=== PATIENT | male | born 1980 | race Caucasian/White ===

== ENCOUNTER → 2024-09-05 | Outpatient (CLI) | payer OTHER, SELFPAY ==
[2024-09-05 13:40] LABS: Coccid Serology, CF (UCD)* See Sep Rpt
[2024-09-05 14:34] LABS: Alanine Aminotransferase 30 U/L (10-49); Albumin, Serum 5.4 gm/dL (3.5-5.0); Alkaline Phosphatase 74 U/L (46-116); Aspartate Amino Transferase 25 U/L (0-34); Bilirubin,Direct 0.2 mg/dL (0.0-0.3); Bilirubin,Total 0.7 mg/dL (0.3-1.2); Total Protein 7.7 gm/dL (5.7-8.2)
== END | disposition home or self-care (01) ==
LOC: COPL 13:27
PROVIDERS: PCP Family Medicine; Referring Provider Family Medicine; Visit Provider Family Medicine
DX: B38.3 Cutaneous coccidioidomycosis (principal)
CPT/HCPCS: 36415; 80076; 86171; 86334

== ENCOUNTER 2025-04-11 11:50 | Day surgery (SDC) | payer OTHER, SELFPAY ==
--- NOTE | 2025-04-10 11:33 | EKG_ITS ---
[facility] Test Date: 2025-04-10 Pat Name: ALDO CAMACHO Department: Room: - Gender: Male Cyber Security Consultant: JEN : 1980 Requested By: Tosha Marrufo Order Number: [id number] Reading MD: Tosha Marrufo Measurements Intervals [place] Rate: 65 P: 81 CT: 168 QRS: 86 QRSD: 93 T: 70 QT: 380 QTc: 396 Interpretive Statements SINUS RHYTHM EARLY REPOLARIZATION [ST ELEVATION WITH NORMALLY INFLECTED T WAVE] MODERATE ST DEPRESSION [0.05+ mV ST DEPRESSION] No previous ECG available for comparison /[id number]
[2025-04-10 11:54] LABS: Prothrombin Time 11.2 Seconds (9.0-12.2)
[2025-04-10 12:06] LABS: Alanine Aminotransferase 28 U/L (10-49); Albumin, Serum 4.9 gm/dL (3.5-5.0); Albumin/Globulin Ratio 2.1 (1.2-2.2); Alkaline Phosphatase 68 U/L (46-116); Anion Gap 9 (7-16); BUN/Creatinine Ratio 16 Ratio (12-20); Bilirubin,Total 0.7 mg/dL (0.3-1.2); Blood Urea Nitrogen 18 mg/dL (9-23); Calcium 9.6 mg/dL (8.3-10.6); Calcium (Corrected) 9.6 mg/dL (8.5-10.1); Chloride 105 mMol/L (98-107); Creatinine (Component) 1.1 mg/dL (0.6-1.3); Globulin 2.3 gm/dL (2.3-3.5); Glucose 99 mg/dL (74-106); Osmolality,Calculated 286 (275-295); Potassium 5.1 mMol/L (3.4-5.1); Sodium 143 mMol/L (136-145); Total Protein 7.2 gm/dL (5.7-8.2); eGFR > 60 See Note
[2025-04-10 15:39] VITALS: BMI 23.7
[2025-04-11 12:27] VITALS: BP 145/88; PULSE 79; RESP 15; TEMP 36.7; O2SAT 99
[2025-04-11] MEDS: RINGERS LACTATED 1000 ML 1,000 ML 20 ML IV (12:40)
[2025-04-11 12:42] VITALS: BMI 23.3
[2025-04-11 13:34] VITALS: BP 90/64; PULSE 77; RESP 12; TEMP 36.5; O2SAT 100
[2025-04-11 13:44] VITALS: BP 97/67; PULSE 72; RESP 18; O2SAT 95
[2025-04-11 13:54] VITALS: BP 102/73; PULSE 84; RESP 22; O2SAT 96
[2025-04-11 14:05] VITALS: BP 124/74; PULSE 85; RESP 12; O2SAT 96
== END 2025-04-11 14:05 | disposition home or self-care (01) ==
PROVIDERS: PCP Family Medicine; Referring Provider Specialist; Visit Provider Specialist
PROC: 0DBE8ZX Excision of Large Intestine, Via Natural or Artificial Opening Endoscopic, Diagnostic (ICD-10-PCS; CPT 45380; principal; 2025-04-11 12:45)
DX: Z12.11 Encounter for screening for malignant neoplasm of colon (principal); Z01.810 Encounter for preprocedural cardiovascular examination; D12.8 Benign neoplasm of rectum; K64.9 Unspecified hemorrhoids
CPT/HCPCS: 45380; 36415; 80053; 85610; 85730; 93005; J7120

== ENCOUNTER → 2025-06-11 | Outpatient (CLI) | payer OTHER, SELFPAY ==
[2025-06-11 16:25] LABS: Coccid Serology, CF (UCD)* See Sep Rpt
[2025-06-11 17:45] LABS: Sed Rate (ESR) 5 mm/hr (0-15)
[2025-06-11 22:29] LABS: Alanine Aminotransferase 24 U/L (10-49); Albumin, Serum 5.3 gm/dL (3.5-5.0); Alkaline Phosphatase 64 U/L (46-116); Anion Gap 12 (7-16); Aspartate Amino Transferase 22 U/L (0-34); BUN/Creatinine Ratio 13 Ratio (12-20); Bilirubin,Direct 0.2 mg/dL (0.0-0.3); Bilirubin,Total 0.6 mg/dL (0.3-1.2); Blood Urea Nitrogen 14 mg/dL (9-23); Calcium 10.5 mg/dL (8.3-10.6); Carbon Dioxide 25.3 mMol/L (20.0-31.0); Chloride 106 mMol/L (98-107); Creatinine (Component) 1.1 mg/dL (0.6-1.3); Glucose 108 mg/dL (74-106); Osmolality,Calculated 286 (275-295); Potassium 3.9 mMol/L (3.4-5.1); Sodium 143 mMol/L (136-145); Total Protein 7.6 gm/dL (5.7-8.2); eGFR > 60 See Note
[2025-06-12 14:13] LABS: Cholesterol 155 mg/dL (132-200); Triglycerides 146 mg/dL (30-150)
[2025-06-12 15:05] LABS: Cardiac Risk Estimate 4.4 RATIO (4.0-6.7); HDL Cholesterol 35 mg/dL (40-60); LDL Cholesterol,Calculated 91 mg/dL (0-130)
== END | disposition home or self-care (01) ==
LOC: COPL 15:58
PROVIDERS: PCP Family Medicine; Referring Provider Family Medicine; Visit Provider Family Medicine
DX: Z00.00 Encounter for general adult medical examination without abnormal findings (principal); B38.3 Cutaneous coccidioidomycosis; R53.83 Other fatigue
CPT/HCPCS: 36415; 80048; 80061; 80076; 85652; 86171; 86334; 86850; 86900; 86901